=== PATIENT | male | born 1955 | race Caucasian/White ===

== ENCOUNTER 2019-03-15 12:28 | Emergency (ER) | payer MEDICAID ==
[~2019-03-15] VITALS: Ht 170.2 cm; Wt 77.6 kg
[2019-03-15 12:40] VITALS: Ht 170.2 cm; Wt 77.6 kg
[2019-03-15 15:40] VITALS: BP 130/62
== END 2019-03-15 16:25 | disposition home or self-care (01) ==
LOC: ED 12:28
DX: N39.0 Urinary tract infection, site not specified (principal); E11.9 Type 2 diabetes mellitus without complications
CPT/HCPCS: 82962; J1885

== ENCOUNTER 2019-03-21 18:34 | Emergency (ER) | payer MEDICAID ==
[~2019-03-21] VITALS: Ht 170.2 cm; Wt 80.3 kg
[2019-03-21 18:43] VITALS: Ht 170.2 cm; Wt 80.3 kg
[2019-03-21 23:54] LABS: BASOPHIL % 1.2 % (0-2)
[2019-03-21 23:56] LABS: CALCIUM 8.8 mg/dL (8.5-10.1); CARBON DIOXIDE 28.3 mmol/L (21-32); CHLORIDE SERUM 106 mmol/L (98-107); CREATININE SERUM 0.8 mg/dL (0.7-1.3); GFR1 > 60 mL/min; GLUCOSE SERUM 160 mg/dL (74-106); POTASSIUM SERUM 3.9 mmol/L (3.5-5.1); SODIUM SERUM 142 mmol/L (136-145)
[2019-03-21 23:57] LABS: PLATELET COUNT 129 x10^3mcL (130-400); RED CELL DISTRIBUTION WIDTH 20.8 % (11.5-14.5)
[2019-03-22 00:26] VITALS: BP 108/74
== END 2019-03-22 00:26 | disposition home or self-care (01) ==
LOC: ED 18:34
PROVIDERS: Emergency Medicine
DX: D64.9 Anemia, unspecified (principal); R16.1 Splenomegaly, not elsewhere classified; E11.9 Type 2 diabetes mellitus without complications
CPT/HCPCS: 36415